=== PATIENT | male | born 1975 | race Caucasian/White ===

== ENCOUNTER 2023-06-18 09:42 | Day surgery (SDC) | payer OTHER ==
[2023-06-18 10:28] LABS: BASOPHILS # (AUTO) 0.1 10^3/uL (0.0-0.1); BASOPHILS % (AUTO) 0.5 %; EOSINOPHILS % (AUTO) 0.2 %; HCT - HEMATOCRIT 46.5 % (42.0-52.0); HGB - HEMOGLOBIN 15.7 g/dL (14.0-18.0); LYMPHOCYTES # (AUTO) 2.7 10^3/uL (1.5-3.5); MEAN CORPUSCULAR HEMOGLOBIN 30.5 pg (27.0-31.0); MEAN CORPUSCULAR HGB CONC 33.8 g/dL (32.0-36.0); MEAN CORPUSCULAR VOLUME 90.3 fL (80.0-94.0); MEAN PLATELET VOLUME 9.9 fL (7.4-11.4); MONOCYTES # (AUTO) 1.7 10^3/uL (0.0-1.0); MONOCYTES % (AUTO) 8.6 %; NEUTROPHILS # (AUTO) 14.8 10^3/uL (1.5-6.6); NEUTROPHILS % (AUTO) 76.3 %; PLT - PLATELET COUNT 293 10^3/uL (130-450); RED BLOOD COUNT 5.15 10^6/uL (4.70-6.10); RED CELL DISTRIBUTION WIDTH 11.5 % (12.0-15.0); WHITE BLOOD COUNT 19.4 x10^3/uL (4.8-10.8)
[2023-06-18 10:47] LABS: PLATELET ESTIMATE, MANUAL NORMAL (130-450,000) (NORMAL); PLATELET MORPHOLOGY NORMAL APPEARANCE (NORMAL); RBC MORPHOLOGY (MULTIPLE) NORMAL APPEARANCE (NORMAL); SLIDE REVIEW? Indicated; WBC MORPHOLOGY (MULTIPLE) NORMAL APPEARANCE (NORMAL)
[2023-06-18 10:49] LABS: ALBUMIN/GLOBULIN RATIO 2.1 (1.0-2.2); ALKALINE PHOSPHATASE 71 IU/L (42-121); ALT ALANINE AMINOTRANSFERASE 25 IU/L (10-60); AST ASPARTATE AMINOTRANSFERASE 19 IU/L (10-42); BILIRUBIN,TOTAL 3.1 mg/dL (0.2-1.0); BUN - BLOOD UREA NITROGEN 12 mg/dL (6-20); CALCIUM 10.5 mg/dL (8.5-10.3); CARBON DIOXIDE - CO2 30 mmol/L (21-32); CHLORIDE 98 mmol/L (101-111); GFR - MDRD 81 (>89); GLUCOSE 117 mg/dL (74-104); POTASSIUM 3.7 mmol/L (3.5-4.5); SODIUM 136 mmol/L (135-145); TOTAL PROTEIN 7.4 g/dL (6.4-8.9)
[2023-06-18 10:57] LABS: LIPASE < 10 U/L (11-82)
--- NOTE | 2023-06-18 13:28 | ED Physician Documentation ---
PD HPI ABD PAIN - Stated complaint Stated Complaint: ABD PX - Chief complaint Chief Complaint: Abd Pain - History obtained from History obtained from: Patient - History of Present Illness Timing - onset: Yesterday Timing - duration: Days (1) Timing - details: Gradual onset (Onset of general nausea with feeling of bloating and mid abdominal discomfort yesterday morning. He did not have much appetite and did not have Thanksgiving meal. He did have small bites of food with a feeling of bloating. The discomfort became a pain consistently to RLQ, still present.) Quality: Cramping, Aching, Pain Location: Periumbilical, RLQ Radiation: No: Chest, Lower back Improved by: Laying still Worsened by: Eating, Moving, Palpation Associated symptoms: Nausea, Loss of appetite. No: Fever, Vomiting, Diarrhea, Dysuria Similar symptoms before: Has not had sx before Review of Systems Constitutional: denies: Fever, Chills Nose: denies: Rhinorrhea / runny nose, Congestion Throat: denies: Sore throat Respiratory: denies: Cough GI: reports: Abdominal Pain, Nausea. denies: Vomiting, Diarrhea : denies: Dysuria, Frequency Neurologic: denies: Generalized weakness, Near syncope PD PAST MEDICAL HISTORY - Past Medical History Past Medical History: No - Past Surgical History Past Surgical History: Yes Ortho: ACL reconstruction, Other - Present Medications Home Medications: Ambulatory Orders Medication Instructions Recorded Confirmed Ondansetron Odt [Zofran Odt] 4 mg PO Q6H PRN #10 tablet 06/18/23 Oxycodone HCl/Acetaminophen 1 tab PO Q6HR PRN #20 tablet 06/18/23 [Percocet 5-325 mg Tablet] - Allergies Allergies/Adverse Reactions: Allergies Allergy/AdvReac Type Severity Reaction Status Date / Time bacitracin Allergy Hives Verified 06/18/23 10:06 [From Neosporin ([id number])] neomycin Allergy Hives Verified 06/18/23 10:06 [From Neosporin ([id number])] polymyxin B Allergy Hives Verified 06/18/23 10:06 [From Neosporin ([id number])] - Social History Does the pt smoke?: No Smoking Status: Never smoker PD ED PE NORMAL - Vitals Vital signs reviewed: Yes - General General: Alert and oriented X 3, Well developed/nourished, Other (appears in consderable pain from abd. ) - Neck Neck: Supple, no meningeal sign, No adenopathy - Cardiac Cardiac: RRR, No murmur - Respiratory Respiratory: No respiratory distress, Clear bilaterally - Abdomen Abdomen: Soft, Non distended, No organomegaly, Other (Marked tenderness to palpation as well as percussion with guarding in the right lower quadrant and periumbilical area. Referred tenderness from the left lower abdomen to the right. Upper abdomen is not tender.). No: Normal bowel sounds (decreased) - Male Male : Deferred - Rectal Rectal: Deferred Results - Vitals Vitals: Vital Signs - 24 hr 06/18/23 06/18/23 10:02 15:22 Temperature 36.1 C L Heart Rate 77 60 Respiratory 20 18 Rate Blood Pressure 125/82 H 119/72 O2 Saturation 99 96 Oxygen O2 Source Room air - Labs Labs: Laboratory Tests 06/18/23 06/18/23 06/18/23 10:22 10:22 10:40 WBC 19.4 H RBC 5.15 Hgb 15.7 Hct 46.5 MCV 90.3 MCH 30.5 MCHC 33.8 RDW 11.5 L Plt Count 293 MPV 9.9 Neut # (Auto) 14.8 H Lymph # (Auto) 2.7 [place] # (Auto) 1.7 H Eos # (Auto) 0.0 Baso # (Auto) 0.1 Absolute Nucleated RBC 0.00 Nucleated RBC % 0.0 Manual Slide Review Indicated WBC Morphology NORMAL APPEARANCE Platelet Estimate NORMAL (130-450,000) Platelet Morphology NORMAL APPEARANCE RBC Morph Micro Appear NORMAL APPEARANCE Sodium 136 Potassium 3.7 Chloride 98 L Carbon Dioxide 30 Anion Gap 8.0 BUN 12 Creatinine 1.0 Estimated GFR (MDRD) 81 L Glucose 117 H Calcium 10.5 H Total Bilirubin 3.1 H AST 19 ALT 25 Alkaline Phosphatase 71 Total Protein 7.4 Albumin 5.0 Globulin 2.4 Albumin/Globulin Ratio 2.1 Lipase < 10 L Urine Color YELLOW Urine Clarity CLEAR Urine pH 6.0 Ur Specific [place] <=1.005 Urine Protein NEGATIVE Urine Glucose (UA) NEGATIVE Urine Ketones NEGATIVE Urine Occult Blood NEGATIVE Urine Nitrite NEGATIVE Urine Bilirubin NEGATIVE Urine Urobilinogen 0.2 (NORMAL) Ur Leukocyte Esterase NEGATIVE Ur Microscopic Review NOT INDICATED Urine Culture Comments NOT INDICATED - Rads (name of study) abd/pelvic CT Relevant Findings:: EMP independent interpretation of test (enlarged appendix with 11 mm diameter. No perforation nor abscess. Rad report still pending. ) PD Medical Decision Making - ED course Complexity details: reviewed results (The radiology report is still pending. My review of the CT shows an enlarged appendix with swelling and a diameter of 11 mm. No free fluid, perforation, abscess.), re-evaluated patient (The patient is much more comfortable with some IV fluids and medications of ondansetron, Toradol, Dilaudid. He declined the need for further medicine at this time. Recheck abdomen is still focally tender with guarding in the right lower quadrant.), considered differential (The onset of general bloating, nausea, distention and cramps now settled to the right lower quadrant and consistent there with marked tenderness is highly suggestive for appendicitis. Other considerations could be diverticular or other problems. Will get a CT scan as well as give IV fluids and med), d/w patient, d/w business intelligence consultant (Consultation with Dr. Rodriguez who is on for surgery who will come to the ER and see the patient and review the images.) ED course: The location of tenderness on exam and his progression of symptoms is concerning for appendicitis. We are giving IV fluids as well as medications for nausea and pain. We will obtain a CT scan. His blood count was done from the waiting room and his white count is elevated at 19,000. LFTs are normal. Electrolytes do not show's notable abnormalities. Departure - Departure Disposition: ED Transfer to [facility] Clinical Impression: Appendicitis Qualifiers: Appendicitis type: acute appendicitis Acute appendicitis type: with localized peritonitis Appendicitis gangrene presence: without gangrene Appendicitis perforation presence: without perforation Appendicitis abscess presence: without abscess Qualified Code(s): K35.30 - Acute appendicitis with localized peritonitis, without perforation or gangrene Abdominal pain Qualifiers: Abdominal location: right lower quadrant Qualified Code(s): R10.31 - Right lower quadrant pain Condition: Stable Record reviewed to determine appropriate education?: Yes
[2023-06-18] MEDS ORDERED: SODIUM CHLORIDE 0.9% 1,000 ML IV STA ×2 (13:39→16:04)
[2023-06-18] MEDS ORDERED: ONDANSETRON 4 MG/2 ML VIAL IVP STA (13:39)
[2023-06-18] MEDS ORDERED: HYDROmorphone 1 MG/ML CARPUJECT IVP STA (13:39)
[2023-06-18] MEDS ORDERED: KETOROLAC 15 MG/ML VIAL IVP STA (13:39)
[2023-06-18 15:33] LABS: BILIRUBIN,URINE NEGATIVE (NEGATIVE); GLUCOSE, URINE (UA) NEGATIVE (NEGATIVE); KETONES,URINE (UA) NEGATIVE (NEGATIVE); LEUKOCYTE ESTERASE, URINE NEGATIVE (NEGATIVE); NITRITE,URINE NEGATIVE (NEGATIVE); OCCULT BLOOD,URINE NEGATIVE (NEGATIVE); PROTEIN,URINE NEGATIVE (NEGATIVE); UROBILINOGEN,URINE 0.2 (NORMAL) E.U./dL (NORMAL)
[2023-06-18 15:34] LABS: CLARITY,URINE CLEAR (CLEAR)
[2023-06-18] MEDS ORDERED: PIPERACILLIN/TAZOBACTAM 3.375 GM in SODIUM CHLORIDE 0.9% MINIBAG 100 ML IV STA ×2 (16:45→17:20)
--- NOTE | 2023-06-18 17:03 | CT Report ---
PROCEDURE: ABDOMEN/PELVIS W INDICATIONS: abd/RLQ pain for 24 hours, worse. CONTRAST: 100ml omni 300 TECHNIQUE: After the administration of intravenous contrast, 5 mm thick sections acquired from the diaphragms to the symphysis. 5 mm thick coronal and sagittal reformats were acquired. For radiation dose reducti on, the following was used: automated exposure control, adjustment of mA and/or kV according to boni ent size. COMPARISON: None FINDINGS: Image quality: Excellent. Lung bases and heart: Unremarkable. Liver: No solid mass. Very mild diffuse hepatic steatosis. Gallbladder and biliary tree: No radiopaque stones or wall thickening. No biliary dilation. Spleen: No splenomegaly. Pancreas: No pancreatic ductal dilation. Adrenals: No adrenal nodule. Kidneys and ureters: No hydronephrosis. No renal cystic lesion which requires follow up. No solid mas s. Bowel and peritoneum: Acute appendicitis. The appendix is dilated and fluid-filled with an enhancing wall and inflammatory change in the adjacent fat. The appendix measures up to 11 mm in diameter. Lymph nodes: No central or retroperitoneal adenopathy. Vessels: No infrarenal aortic aneurysm. PELVIS Reproductive organs: Unremarkable. Bladder: No abnormal wall thickening, accounting for underdistension. Pelvic lymph nodes: No pelvic adenopathy by size criteria. Bones: No aggressive osseous abnormality. Other: No significant ventral or inguinal hernia. Small right hydroceles, typically an incidental fin ding. IMPRESSION: Acute appendicitis, markedly dilated, with no evidence of acute rupture. Reviewed by: Baldev Abraham MD on 06/18/2023 5:01 PM PST Approved by: Baldev Abraham MD on 06/18/2023 5:01 PM PST Station ID: [id number]
[2023-06-18] MEDS ORDERED: iohexoL-300 100 ML VIAL IVP ONE (17:12)
--- NOTE | 2023-06-18 17:25 | HISTORY & PHYSICAL EXAMINATION ---
Chief Complaint - Chief Complaint Chief Complaint: abdominal pain x 36 hours History of Present Illness - History Obtained From Records Reviewed: yes History obtained from: pt Exam Limitations: none - History of Present Illness HPI Comment/Other: progressive rlq abdominal pain x 36 hours. no fever or nausea. ct very inflamed/ enlarged appendix History - Past Medical History MRSA Hx?: No - Past Surgical History Ortho: reports: ACL reconstruction, Other Meds/Allgy - Home Medications Home Medications: Ambulatory Orders Medication Instructions Recorded Confirmed Ondansetron Odt [Zofran Odt] 4 mg PO Q6H PRN #10 tablet 06/18/23 Oxycodone HCl/Acetaminophen 1 tab PO Q6HR PRN #20 tablet 06/18/23 [Percocet 5-325 mg Tablet] - Allergies Allergies/Adverse Reactions: Allergies Allergy/AdvReac Type Severity Reaction Status Date / Time bacitracin Allergy Hives Verified 06/18/23 10:06 [From Neosporin ([id number])] neomycin Allergy Hives Verified 06/18/23 10:06 [From Neosporin ([id number])] polymyxin B Allergy Hives Verified 06/18/23 10:06 [From Neosporin ([id number])] Exam - Vital Signs Reviewed Vital Signs: Yes Vital Signs: Vital Signs x48h Temp Pulse Resp BP Pulse Ox 06/18/23 15:22 60 18 119/72 96 06/18/23 10:02 36.1 C L 77 20 125/82 H 99 - Physical Exam General Appearance: positive: No acute distress, Alert Eyes Bilateral: positive: PERRL, EOMI, No scleral icterus ENT: positive: No signs of dehydration Neck: positive: No JVD, Trachea midline Respiratory: positive: No respiratory distress, Breath sounds nml Cardiovascular: positive: Regular rate & rhythm Abdomen: positive: No distention, Tenderness, Other (rlq tenderness without peritoneal signs) Neurologic/Psychiatric: positive: Oriented x3 Conclusion/Plan - Problem List (1) Appendicitis Conclusion/Plan: plan appendectomy. parq held and consent obtained Qualifiers: Appendicitis type: acute appendicitis Acute appendicitis type: with localized peritonitis Appendicitis gangrene presence: without gangrene Appendicitis perforation presence: without perforation Appendicitis abscess presence: without abscess Qualified Code(s): K35.30 - Acute appendicitis with localized peritonitis, without perforation or gangrene - Lab Results Fish Bones: 06/18/23 10:22 06/18/23 10:22
[2023-06-18] MEDS ORDERED: fentaNYL 100 MCG/2 ML VIAL ONE (18:03)
[2023-06-18] MEDS ORDERED: ROCURONIUM 50 MG/5 ML VIAL ONE (18:03)
[2023-06-18] MEDS ORDERED: PROPOFOL 200 MG/20 ML VIAL IVP ONE (18:03)
[2023-06-18] MEDS ORDERED: MIDAZOLAM 2 MG/2 ML VIAL ONE (18:03)
[2023-06-18] MEDS ORDERED: BUPIVACAINE 0.25% PF 30 ML VIAL ONE (18:06)
[2023-06-18] MEDS ORDERED: SEVOFLURANE 250 ML LIQUID INH ONE (18:07)
--- NOTE | 2023-06-18 18:11 | ANESTHESIA ---
Pre-Anesthesia VS, & Labs - Diagnosis acute appendicitis - Procedure lap appy Vital Signs: Temp Pulse Resp BP Pulse Ox O2 Flow Rate 36.1 C L 60 18 119/72 96 06/18/23 10:02 06/18/23 15:22 06/18/23 15:22 06/18/23 15:22 06/18/23 15:22 Height: 5 ft 10 in Weight (kg): 92.986 kg Body Mass Index: 29.4 BMI Classification: Overweight - NPO Other (1/2 fruit smoothy @12pm) - Lab Results Current Lab Results: Laboratory Tests 06/18/23 10:22: Sodium 136, Potassium 3.7, Chloride 98 L, Carbon Dioxide 30, Anion Gap 8.0, BUN 12, Creatinine 1.0, Estimated GFR (MDRD) 81 L, Glucose 117 H, Calcium 10.5 H, Total Bilirubin 3.1 H, AST 19, ALT 25, Alkaline Phosphatase 71, Total Protein 7.4, Albumin 5.0, Globulin 2.4, Albumin/Globulin Ratio 2.1, Lipase < 10 L 06/18/23 10:22: WBC 19.4 H, RBC 5.15, Hgb 15.7, Hct 46.5, MCV 90.3, MCH 30.5, MCHC 33.8, RDW 11.5 L, Plt Count 293, MPV 9.9, Neut # (Auto) 14.8 H, Lymph # (Auto) 2.7, [place] # (Auto) 1.7 H, Eos # (Auto) 0.0, Baso # (Auto) 0.1, Absolute Nucleated RBC 0.00, Nucleated RBC % 0.0, Manual Slide Review Indicated, WBC Morphology NORMAL APPEARANCE, Platelet Estimate NORMAL (130-450,000), Platelet Morphology NORMAL APPEARANCE, RBC Morph Micro Appear NORMAL APPEARANCE Lab results reviewed: Yes Fish Bones: 06/18/23 10:22 06/18/23 10:22 Home Medications and Allergies ASA, loratadine, wellbutrin Allergies/Adverse Reactions: Allergies Allergy/AdvReac Type Severity Reaction Status Date / Time bacitracin Allergy Hives Verified 06/18/23 10:06 [From Neosporin ([id number])] neomycin Allergy Hives Verified 06/18/23 10:06 [From Neosporin ([id number])] polymyxin B Allergy Hives Verified 06/18/23 10:06 [From Neosporin ([id number])] Anes History & Medical History - Anesthetic History Anesthesia Complications: reports: No previous complications - Medical History Cardiovascular: reports: None Pulmonary: reports: Other (snores) Gastrointestinal: reports: GERD (occ.) Urinary: reports: None Neuro: reports: None Musculoskeletal: reports: None Endocrine/Autoimmune: reports: None Blood Disorders: reports: None Skin: reports: None Smoking Status: Former smoker Psychosocial: reports: Depression, Alcohol (3-4 drinks daily) History of Cancer?: No - Surgical History Eyes Ears Nose Throat (EENT): reports: Rhinoplasty Orthopedic: reports: ACL reconstruction, Other Exam General: Alert, Oriented x3, Cooperative, No acute distress Dental: WNL Mouth Openin Fingerbreadth Neck Mobility: Normal Mallampati classification: II Thyromental Distance: 4-6 cm Mental/Cognitive Status: Alert/Oriented X3, Normal for patient Plan Anesthesia Type: General Consent for Procedure(s) Verified and Reviewed: Yes Code Status: Attempt Resuscitation ASA classification: 2-Mild systemic disease Is this case an emergency?: Yes
[2023-06-18] MEDS ORDERED: NALOXONE 0.4 MG/ML VIAL IVP PRN (18:26)
[2023-06-18] MEDS ORDERED: ONDANSETRON 4 MG/2 ML VIAL IVP PRN ×2 (18:26→19:31)
[2023-06-18] MEDS ORDERED: HYDROmorphone 0.5 MG/0.5 ML SYRINGE IVP PRN (18:26)
[2023-06-18] MEDS ORDERED: fentaNYL 100 MCG/2 ML VIAL IVP PRN (18:26)
[2023-06-18] MEDS ORDERED: MORPHINE 2 MG/ML CARPUJECT IVP PRN (18:26)
[2023-06-18] MEDS ORDERED: ATROPINE ABBOJECT 1 MG/10 ML SYRINGE IVP PRN (18:26)
[2023-06-18] MEDS ORDERED: ONDANSETRON 4 MG/2 ML VIAL ONE (18:32)
[2023-06-18] MEDS ORDERED: DEXAMETHASONE 4 MG/ML VIAL ONE (18:32)
[2023-06-18] MEDS ORDERED: ACETAMINOPHEN 1,000 MG/100 ML 1,000 MG/100 ML BAG IV ONE (18:33)
[2023-06-18] MEDS ORDERED: BUPIVACAINE 0.25% PF 30 ML VIAL SUBQ ONE (18:39)
[2023-06-18] MEDS ORDERED: LACTATED RINGERS 1,000 ML IV SCH (19:00)
[2023-06-18] MEDS ORDERED: HYDROmorphone 1 MG/ML CARPUJECT ONE (19:16)
[2023-06-18] MEDS ORDERED: SUGAMMADEX 200 MG/2 ML VIAL IVP ONE (19:18)
[2023-06-18] MEDS ORDERED: oxyCODONE 5 MG TABLET PO PRN (19:31)
--- NOTE | 2023-06-18 19:39 | OPERATIVE REPORT ---
Operative Report - General Procedure Date: 06/18/23 Planned Procedure: lap appy Pre-Op Diagnosis: appendicitis Procedure Performed: lap appy and umbilical hernia repair without mesh Post Op Diagnosis: suppurative appendicitis and 1 cm umbilical hernia - Procedure Note Primary Surgeon: taisha love Anesthesia Technique: General ET tube, Local Pathology: appendix Estimated Blood Loss (mL): 2 Drain/Tube Type: Other (none) Indications: appendicitis and pain Findings: as above Complications: none - Other Other Information/Narrative: The patient was properly identified brought to the operating room and placed in supine position. The patient was previously given antibiotics. Sequential compression devices were placed. General endotracheal anesthesia was induced. The patient was prepped and draped in a sterile fashion. Local anesthetic was given to incision areas. An umbilical hernia was appreciated measuring approximately 1 cm. An infraumbilical incision was made in and proceeded down to the fascia. Umbilical skin was sharply excised away from the hernia defect. The fascia was incised lifted upwards and abdomen entered through the umbilical hernia with a Veress needle. CO2 was insufflated to a pressure of 15. A 12 mm trocar was placed with 30 degree scope. There was no evidence of injury from Veress needle or trocar placement. Under direct vision a 5 mm trocar was placed suprapubic and a 5 mm trocar was placed in the right upper quadrant. Appendix was identified and retracted anteriorly. Peritoneal attachments were taken down with careful use of cautery. Appendix was mobilized more anterior. A plane was then created between the mesoappendix and the appendix at the cecum. Appendix was divided with an Endo ANNE-MARIE intestinal load to include up a small portion of the cecum. The mesoappendix was then divided with an Endo ANNE-MARIE vascular load. There was secure closure at the cecum and hemostasis was assured. The appendix was brought out. The abdomen was thoroughly irrigated and hemostasis again assured. Trochars were removed under direct vision. Fascia at the umbilical hernia site was closed with a running 0 Vicryl suture. Umbilical skin was tacked back down to fascia with an interrupted 3-0 Vicryl suture. Subcutaneous tissue was irrigated and skin reapproximated with buried interrupted 4-0 Monocryl. Dressings were applied. The patient tolerated the procedure well was awakened and brought to recovery in good condition.
[2023-06-18] MEDS ORDERED: LACTATED RINGERS 800 ML IV ONE (19:59)
[2023-06-18 20:27] VITALS: O2SAT 93
--- NOTE | 2023-06-18 20:41 | ANESTHESIA POST OP EVALUATION ---
Anesthesia Post Eval - Post Anesthesia Eval Vitals: Last Vital Signs Temp 36.5 C 06/18/23 20:17 Pulse 63 06/18/23 20:17 Resp 18 06/18/23 20:17 BP 120/70 06/18/23 20:17 Pulse Ox 93 06/18/23 20:17 O2 Flow Rate CV Function Including HR & BP: Stable Pain Control: Satisfactory Nausea & Vomiting: Negative Mental Status: Baseline Respiratory Status: Airway Patent Hydration Status: Satisfactory Anesthesia Complications: None
[2023-06-18 21:12] VITALS: BP 118/71
== END 2023-06-18 21:00 | disposition home or self-care (01) ==
LOC: ED 09:42 → SDS 17:10 → MS3 19:34 → SDS 21:00
PROVIDERS: ATTEND Surgery
PROC: 0DTJ4ZZ Resection of Appendix, Percutaneous Endoscopic Approach (ICD-10-PCS; principal; 2023-06-18 18:30)
DX: K35.30 Acute appendicitis with localized peritonitis, without perforation or gangrene (principal); K42.9 Umbilical hernia without obstruction or gangrene; K21.9 Gastro-esophageal reflux disease without esophagitis; Z87.891 Personal history of nicotine dependence
CPT/HCPCS: 36415; 44970; 74177; 80053; 81003; 83690; 85025; 96374; 96375; 99285; J0131; J1170; J3490; J7120; Q9967; 81001; 87086